=== PATIENT | male | born 1965 | race Hispanic/Latino ===

== ENCOUNTER 2022-03-03 08:58 | Day surgery (SDC) | payer MEDICAID ==
[~2022-03-03] VITALS: Ht 172.7 cm; Wt 81.6 kg
[~2022-03-03 08:58] MED LIST: ASPIRIN 81 LOW81 MG; LIPITOR40 M1 PO; TAMSULOSIN HCL0.4 MG PO
[2022-03-03 12:32] VITALS: BP 111/76
== END 2022-03-03 12:32 | disposition home or self-care (01) ==
LOC: ENDO 08:58
PROVIDERS: ATTEND Surgery
DX: Z12.11 Encounter for screening for malignant neoplasm of colon (principal); E78.5 Hyperlipidemia, unspecified